=== PATIENT | female | born 1980 | race Caucasian/White ===

== ENCOUNTER 2016-08-06 15:43 | Emergency (ER) | payer MEDICAID, OTHER ==
[~2016-08-06] VITALS: Ht 165.1 cm; Wt 60.0 kg
[2016-08-06 19:52] LABS: CLARITY URINE CLEAR (CLEAR); COLOR URINE DARK YELLOW (YELLOW); GLUCOSE URINE NEGATIVE (NEGATIVE); KETONES URINE NEGATIVE (NEGATIVE); LEUKOCYTE ESTERASE URINE TRACE (NEGATIVE); NITRITE URINE POSITIVE (NEGATIVE); OCCULT BLOOD URINE 2+ (NEGATIVE); PH URINE 5.5 (4.5-8.0); PROTEIN URINE NEGATIVE (NEGATIVE); SPECIFIC GRAVITY URINE 1.012 (1.005-1.030); UROBILINOGEN URINE 0.2 E.U./dL (0.2-1.0)
[2016-08-06] MEDS ORDERED: HYDROCODONE/ACETAMINOPHEN 5/325MG TABLET PO ONE (20:00)
[2016-08-06 20:05] LABS: BACTERIA URINE TRACE; RBC URINE 25-50 /hpf (0-2); SQUAMOUS EPITHELIAL CELL URINE RARE /lpf (RARE/1+); WBC URINE 0-2 /hpf (0-2)
[2016-08-06 20:30] VITALS: BP 129/76
[2016-08-06] MEDS ORDERED: LEVOFLOXACIN 500MG TABLET PO NR (20:45)
== END 2016-08-06 22:00 | disposition left against medical advice (07) ==
LOC: ER 15:43
DX: N39.0 Urinary tract infection, site not specified (principal); M79.7 Fibromyalgia; Z88.8 Allergy status to other drugs, medicaments and biological substances
CPT/HCPCS: 81001; 81025; 87086; 99284; Z7610

== ENCOUNTER 2016-08-07 12:50 | Emergency (ER) | payer MEDICAID, OTHER ==
[~2016-08-07] VITALS: Ht 160 cm; Wt 68.0 kg
[2016-08-07 13:08] VITALS: BP 113/64
== END 2016-08-07 15:58 | disposition home or self-care (01) ==
LOC: ER 15:13
DX: N30.90 Cystitis, unspecified without hematuria (principal); N39.0 Urinary tract infection, site not specified; M79.7 Fibromyalgia; F41.9 Anxiety disorder, unspecified; Z90.710 Acquired absence of both cervix and uterus; Z88.8 Allergy status to other drugs, medicaments and biological substances
CPT/HCPCS: 99283

== ENCOUNTER 2017-03-20 13:35 | Emergency (ER) | payer OTHER ==
[~2017-03-20] VITALS: Ht 160 cm; Wt 62.0 kg
[2017-03-20] MEDS ORDERED: TETANUS, DIPHTHERIA, PERTUSSIS VAC/PF 0.5ML (>7YR OLD) IM ONE (18:30)
[2017-03-20] MEDS ORDERED: IBUPROFEN 400MG TABLET PO ONE (18:30)
[2017-03-20 18:47] LABS: BASOPHILS % 0.9 % (0.0-2.0); EOSINOPHILS % 3.8 % (0.0-5.0); HEMATOCRIT. 37.1 % (36.0-48.0); HEMOGLOBIN. 12.6 g/dL (12.0-16.0); LYMPHOCYTES % 21.4 % (20.0-50.0); MEAN CORPUSCULAR HEMOGLOBIN 32.9 pg (28.0-32.0); MEAN CORPUSCULAR VOLUME 96.9 fL (81.0-99.0); MEAN PLATELET VOLUME 6.6 fl (7.4-10.4); MONOCYTES % 8.9 % (2.0-8.0); PLATELET 244 x1000/uL (130-400); RED BLOOD CELL COUNT 3.83 mill/uL (4.2-5.4); RED CELL DISTRIBUTION WIDTH 14.9 % (11.6-14.6)
[2017-03-20 18:52] LABS: CHLORIDE 103 mEq/L (98-107)
[2017-03-20 18:54] LABS: PARTIAL THROMBOPLASTIN TIME 26.1 sec (23.4-31.0); PROTHROMBIN TIME 10.1 sec (9.4-11.6)
[2017-03-20 18:56] LABS: HCG SCREEN NEGATIVE
[2017-03-20 18:58] LABS: CARBON DIOXIDE 27 mEq/L (21-32)
[2017-03-20 20:30] VITALS: BP 110/71
== END 2017-03-20 20:30 | disposition home or self-care (01) ==
LOC: ER 14:02
DX: R07.81 Pleurodynia (principal); S81.851A Open bite, right lower leg, initial encounter; W54.0XXA Bitten by dog, initial encounter; Y93.89 Activity, other specified; Y92.89 Other specified places as the place of occurrence of the external cause; Z23 Encounter for immunization; F17.210 Nicotine dependence, cigarettes, uncomplicated; F12.90 Cannabis use, unspecified, uncomplicated
CPT/HCPCS: 36415; 71101; 80048; 84703; 85025; 85610; 85730; 90471; 90715; 93005; 99285; Z7610

== ENCOUNTER 2017-03-26 00:05 | Emergency (ER) | payer MEDICAID, OTHER ==
[~2017-03-26] VITALS: Ht 160 cm; Wt 62.0 kg
[2017-03-26] MEDS ORDERED: KETOROLAC 60MG/2ML VIAL IM ONE (03:30)
[2017-03-26 04:26] VITALS: BP 101/62
== END 2017-03-26 04:54 | disposition home or self-care (01) ==
LOC: ER 00:05
DX: Z48.00 Encounter for change or removal of nonsurgical wound dressing (principal); R03.0 Elevated blood-pressure reading, without diagnosis of hypertension; F17.210 Nicotine dependence, cigarettes, uncomplicated
CPT/HCPCS: 96372; 99283; J1885; Z7610